=== PATIENT | male | born 1970 | race Caucasian/White ===

== ENCOUNTER 2018-08-30 06:32 | Emergency (ER) | payer OTHER ==
[~2018-08-30] VITALS: Ht 180.3 cm; Wt 104.3 kg
[~2018-08-30 06:32] MED LIST: ALBUTEROL; AMIT25 PO; CYCL10; CYCL10 PO; DULO30 PO; GABA600; GABA600 PO; HYDACE5 PO; IBUP600 PO; NAPR500 PO; PRED20 PO; RXNAPNA550 PO; TRAM50; TRAM50 PO
[2018-08-30] MEDS ORDERED: BENZ100A PO (07:07)
[2018-08-30] MEDS ORDERED: ALBU90OI INH (07:07)
== END 2018-08-30 07:41 | disposition home or self-care (01) ==
LOC: ER 06:32
DX: J06.9 Acute upper respiratory infection, unspecified (principal); J45.909 Unspecified asthma, uncomplicated; Z88.2 Allergy status to sulfonamides; Z88.8 Allergy status to other drugs, medicaments and biological substances; Z79.899 Other long term (current) drug therapy; Z79.891 Long term (current) use of opiate analgesic
CPT/HCPCS: 87081; 87430; 99283; J1100

== ENCOUNTER 2022-02-24 15:48 | Emergency (ER) | payer OTHER ==
[~2022-02-24] VITALS: Ht 177.8 cm; Wt 149.7 kg
[~2022-02-24 15:48] MED LIST changes: +ALBU90OI INH; +BENZ100A PO
== END 2022-02-24 18:00 | disposition home or self-care (01) ==
LOC: ER 15:48
DX: S61.412A Laceration without foreign body of left hand, initial encounter (principal); J45.909 Unspecified asthma, uncomplicated; Z88.2 Allergy status to sulfonamides; Z88.8 Allergy status to other drugs, medicaments and biological substances; Z79.899 Other long term (current) drug therapy; W26.0XXA Contact with knife, initial encounter
CPT/HCPCS: 73130; A9270